=== PATIENT | female | born 1940 | race Caucasian/White ===

== ENCOUNTER 2020-03-16 18:51 | Emergency (ER) | payer MEDICARE, OTHER ==
[2020-03-16] MEDS ORDERED: KETOROLAC TROMETHAMINE INJ 30 MG/ML VIAL IM ONE (19:18)
--- NOTE | 2020-03-16 20:37 | CT ---
EXAM: Abdoment/Pelvis w/o Contrast CLINICAL INDICATION: Abdominal pain. COMPARISON: There is no previous study for comparison. TECHNIQUE: The CT scan was done using contiguous axial 2.5 mm noncontrast sections through the abdomen and pelvis. This exam was performed according to our departmental dose-optimization program, which includes automated exposure control, adjustment of the mA and/or kV according to patient size and/or use of iterative reconstruction technique. FINDINGS: The visualized portions of the lung bases contain mild areas of subsegmental atelectasis but are otherwise clear. Surgical changes are noted involving the stomach. The spleen is surgically absent. The liver is unremarkable. The gallbladder is not clearly identified. The adrenal glands appear mildly prominent but otherwise unremarkable. The pancreas is somewhat atrophic but otherwise unremarkable. There is a nonobstructing stone in the lower pole of the left kidney measuring 6.0 x 3.7 mm. The kidneys are otherwise unremarkable. There is no ureteral stone or hydronephrosis on either side. The aorta contains atherosclerotic calcifications without evidence of aneurysm. There are no dilated loops of small bowel, free air, free fluid, or abscess. The uterus is surgically absent. IMPRESSION: 1. No evidence of an acute intra-abdominal process. 2. Nonobstructing stone in the left kidney. Electronically signed by: Jason Du MD 03/16/2020 8:35 PM CDT
[2020-03-16] MEDS ORDERED: SODIUM CHLORIDE 0.9% 1000ML 1,000 ML ONE (20:41)
[2020-03-16] MEDS ORDERED: CIPROFLOXACIN 500 MG TAB PO ONE (22:59)
[2020-03-16 23:12] VITALS: TEMP 97.9
--- NOTE | 2020-03-16 23:24 | ED.PDOC ---
History of Present Illness - General Chief Complaint: Problem Stated Complaint: right flank pain 2 hours ago Time Seen by Provider: 03/16/20 19:18 Source: patient Exam Limitations: no limitations - History of Present Illness Initial Comments: The patient is a 79-year-old female presented emergency room secondary to abdominal and right flank pain that started abruptly about an hour prior to arrival. The patient does have some dementia and sometimes communication is difficult for her. She does appear a little bit confused but I have not seen her before. She reports cramping in the right side of her abdomen as well as some spasm in her right back. No urinary symptoms. Mild nausea. Daughter reports some diaphoresis that is not apparent now. Timing/Duration: 1-3 hours Severity: moderate Improving Factors: nothing Worsening Factors: nothing Associated Symptoms: diaphoresis, malaise Allergies/Adverse Reactions: Allergies Penicillins Allergy (Intermediate, Verified 01/06/14 16:45) Codeine Allergy (Mild, Verified 01/06/14 16:45) Sulfa Antibiotics Allergy (Mild, Verified 01/06/14 16:45) Home Medications: Ambulatory Orders ALPRAZolam [Xanax] 0.25 mg PO BID 01/06/14 Acetaminophen [Tylenol] 500 mg PO PRN 01/06/14 Atenolol [Tenormin] 25 mg PO BID 01/06/14 Citalopram Hydrobromide 40 mg PO BEDTIME 01/06/14 rOPINIRole HCL [Requip] 0.5 mg PO BEDTIME 01/06/14 Rivastigmine 9.5MG/24Hr Patch [Exelon PATCH] 4.6 mg TD DAILY 01/07/14 ARIPiprazole [Abilify] 2 mg PO BEDTIME 03/16/20 Ciprofloxacin [Cipro] 250 mg PO Q12H #10 tablet 03/16/20 Cyanocobalamin [Vitamin B-12] 1,000 mcg PO QAM 03/16/20 Glipizide [Glipizide ER] 2.5 mg PO QAM 03/16/20 Lisinopril 2.5 mg PO QAM 03/16/20 Memantine [Namenda] 5 mg PO BID 03/16/20 Oxybutynin Chloride 5 mg PO BEDTIME 03/16/20 Pantoprazole Sodium 40 mg PO QAM 03/16/20 QUEtiapine FUMARATE [SEROquel] 25 mg PO BID 03/16/20 Trazodone HCl [Trazodone Hydrochloride] 50 mg PO BEDTIME 03/16/20 Venlafaxine HCl [Venlafaxine HCl ER] 37.5 mg PO QAM 03/16/20 Review of Systems - Review of Systems Constitutional: States: malaise, weakness EENTM: States: no symptoms reported Respiratory: States: no symptoms reported Cardiology: States: no symptoms reported Gastrointestinal/Abdominal: States: abdominal pain, nausea Genitourinary: States: no symptoms reported Musculoskeletal: States: back pain Skin: States: no symptoms reported Neurological: States: see HPI - Mild confusion Endocrine: States: no symptoms reported All other Systems: No Change from Baseline Past Medical History (General) - Patient Medical History Hx Seizures: No Hx Stroke: No Hx Dementia: Yes Hx Asthma: No Hx of COPD: No Hx Cardiac Disorders: No Hx Congestive Heart Failure: No Hx Pacemaker: No Hx Hypertension: Yes Hx Thyroid Disease: No Hx Diabetes: Yes Hx Gastroesophageal Reflux: Yes Hx Renal Disease: No Hx Cancer: No Hx of HIV: No Hx Hepatitis C: No Hx MRSA: No Surgical History: cholecystectomy - Vaccination History Hx Influenza Vaccination: - unknown Hx Pneumococcal Vaccination: - unknown - Social History Hx Tobacco Use: Yes Hx Alcohol Use: No Hx Substance Use: No Hx Physical Abuse: No Hx Emotional Abuse: No Family Medical History - Family History Mother Family History: Unknown Living Status: Age at (years of age): 41 Cause of : beaten to Hx Family Asthma: No Hx Family Congestive Heart Failure: Yes Hx Family Hypertension: No Hx Family Stroke: No Hx Cardiac Disease: Yes Hx Family Diabetes: No Hx Family Cancer: Yes Physical Exam - Physical Exam General Appearance: Alert, Anxious Eye Exam: bilateral normal Ears, Nose, Throat: hearing grossly normal, normal pharynx Neck: full range of motion, supple Respiratory: lungs clear, normal breath sounds, no respiratory distress, no accessory muscle use Cardiovascular/Chest: normal peripheral pulses, no edema, other - Regular rate Peripheral Pulses: radial,right: 2+, radial,left: 2+ Gastrointestinal/Abdominal: soft, other - Vague right-sided abdominal discomfort to palpation Rectal Exam: deferred Back Exam: no vertebral tenderness, muscle spasm Extremity: normal range of motion, non-tender, normal inspection, no pedal edema, normal capillary refill 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 This improves markedly with correction of the glucose. Skin Exam: pallor Comments: Vital Signs - 8 hr 03/16/20 03/16/20 03/16/20 19:00 20:00 21:00 Temperature 97.8 F Pulse Rate [ 82 65 62 monitor] Respiratory 16 16 16 Rate Blood Pressure 195/90 141/83 161/76 [Left Arm] O2 Sat by Pulse 97 98 99 Oximetry 03/16/20 03/16/20 22:00 23:00 Temperature 97.9 F Pulse Rate [ 64 59 L monitor] Respiratory 16 16 Rate Blood Pressure 163/84 167/86 [Left Arm] O2 Sat by Pulse 97 97 Oximetry Progress - Progress Progress: 03/16/20 23:25 The patient is a 79-year-old female presented emergency room secondary to right abdomen and flank pain that was fairly abrupt onset this evening. The 2 potential sources for this appear to be hypoglycemia and urinary tract infection. Hypoglycemia resolved with oral intake. Symptoms resolved soon after. This is the most likely cause. The patient does have a urinary tract infection. Urine will be cultured. She is going to be placed on 5 days of oral ciprofloxacin. She does need to increase her fluid intake. She does need to eat regularly to prevent further hypoglycemic episodes. The patient is doing much better at this time. Keep follow-up with primary care doctor this coming week. july gomez [phone] - Results/Orders Results/Orders: CT scan of abdomen pelvis shows no acute pathology. See report for details. Laboratory Results - last 24 hr 03/16/20 03/16/20 03/16/20 19:32 19:32 19:32 WBC 13.6 H RBC 4.37 Hgb 10.0 L Hct 31.8 L MCV 72.7 L MCH 22.9 L MCHC 31.4 L RDW 20.3 H Plt Count 357 MPV 10.3 Absolute Neuts (auto) Not Reportable Absolute Lymphs (auto) Not Reportable Absolute Monos (auto) Not Reportable Absolute Eos (auto) Not Reportable Neutrophils % Not Reportable Neutrophils % (Manual) 41.0 L Lymphocytes % Not Reportable Lymphocytes % (Manual) 55.0 Monocytes % Not Reportable Monocytes % (Manual) 4.0 Eosinophils % Not Reportable Basophils % Not Reportable Hypochromia 2+ Platelet Estimate Normal Poikilocytosis 1+ Anisocytosis 2+ Microcytosis 1+ Target Cells 2+ Schistocytes 1+ PT 9.3 INR < 1.00 PTT (SP) 21.8 Sodium 142 Potassium 4.0 Chloride 108 Carbon Dioxide 25 Anion Gap 13.0 BUN 21 H Creatinine 1.14 BUN/Creatinine Ratio 18.4 POC Glucose Random Glucose 49 L Serum Osmolality 283.3 Lactic Acid Calcium 9.5 Magnesium 2.2 Total Bilirubin 0.4 AST 15 ALT 9 L Alkaline Phosphatase 90 Creatine Kinase 39 CK-MB (CK-2) 1.6 CK-MB (CK-2) % Not Reportable Troponin I < 0.02 B-Natriuretic Peptide 276.0 H* Serum Total Protein 6.5 Albumin 3.7 Globulin 2.8 Albumin/Globulin Ratio 1.3 Amylase 29 Lipase 23 Urine Color Urine Appearance Urine pH Ur Specific Howard Urine Protein Urine Glucose (UA) Urine Ketones Urine Blood Urine Nitrite Urine Bilirubin Urine Urobilinogen Ur Leukocyte Esterase Urine RBC Urine WBC Ur Epithelial Cells Urine Bacteria 03/16/20 03/16/20 03/16/20 19:32 19:32 20:05 WBC RBC Hgb Hct MCV MCH MCHC RDW Plt Count MPV Absolute Neuts (auto) Absolute Lymphs (auto) Absolute Monos (auto) Absolute Eos (auto) Neutrophils % Neutrophils % (Manual) Lymphocytes % Lymphocytes % (Manual) Monocytes % Monocytes % (Manual) Eosinophils % Basophils % Hypochromia Platelet Estimate Poikilocytosis Anisocytosis Microcytosis Target Cells Schistocytes PT INR PTT (SP) Sodium Potassium Chloride Carbon Dioxide Anion Gap BUN Creatinine BUN/Creatinine Ratio POC Glucose 45 L 157 H D Random Glucose Serum Osmolality Lactic Acid 1.1 Calcium Magnesium Total Bilirubin AST ALT Alkaline Phosphatase Creatine Kinase CK-MB (CK-2) CK-MB (CK-2) % Troponin I B-Natriuretic Peptide Serum Total Protein Albumin Globulin Albumin/Globulin Ratio Amylase Lipase Urine Color Urine Appearance Urine pH Ur Specific Howard Urine Protein Urine Glucose (UA) Urine Ketones Urine Blood Urine Nitrite Urine Bilirubin Urine Urobilinogen Ur Leukocyte Esterase Urine RBC Urine WBC Ur Epithelial Cells Urine Bacteria 03/16/20 03/16/20 22:30 23:02 WBC RBC Hgb Hct MCV MCH MCHC RDW Plt Count MPV Absolute Neuts (auto) Absolute Lymphs (auto) Absolute Monos (auto) Absolute Eos (auto) Neutrophils % Neutrophils % (Manual) Lymphocytes % Lymphocytes % (Manual) Monocytes % Monocytes % (Manual) Eosinophils % Basophils % Hypochromia Platelet Estimate Poikilocytosis Anisocytosis Microcytosis Target Cells Schistocytes PT INR PTT (SP) Sodium Potassium Chloride Carbon Dioxide Anion Gap BUN Creatinine BUN/Creatinine Ratio POC Glucose 164 H Random Glucose Serum Osmolality Lactic Acid Calcium Magnesium Total Bilirubin AST ALT Alkaline Phosphatase Creatine Kinase CK-MB (CK-2) CK-MB (CK-2) % Troponin I B-Natriuretic Peptide Serum Total Protein Albumin Globulin Albumin/Globulin Ratio Amylase Lipase Urine Color Yellow Urine Appearance Sl cloudy Urine pH 5.5 Ur Specific Howard >= 1.030 Urine Protein Negative Urine Glucose (UA) Negative Urine Ketones Trace Urine Blood Negative Urine Nitrite Negative Urine Bilirubin Negative Urine Urobilinogen 0.2 Ur Leukocyte Esterase Small H Urine RBC 0 Urine WBC 5-10 H Ur Epithelial Cells 3-5 Urine Bacteria Rare Departure - Departure Clinical Impression: Hypoglycemia Urinary tract infection Qualifiers: Urinary tract infection type: acute cystitis Hematuria presence: without hematuria Qualified Code(s): N30.00 - Acute cystitis without hematuria Disposition: Discharge to Home or Self Care Condition: Fair Departure Forms: ED Discharge - Pt. Copy, Patient Portal Self Enrollment Diet: regular diet Activity: increase activity as tolerated Prescriptions: Ciprofloxacin [Cipro] 250 mg PO Q12H #10 tablet Home Medications: Ambulatory Orders ALPRAZolam [Xanax] 0.25 mg PO BID 01/06/14 Acetaminophen [Tylenol] 500 mg PO PRN 01/06/14 Atenolol [Tenormin] 25 mg PO BID 01/06/14 Citalopram Hydrobromide 40 mg PO BEDTIME 01/06/14 rOPINIRole HCL [Requip] 0.5 mg PO BEDTIME 01/06/14 Rivastigmine 9.5MG/24Hr Patch [Exelon PATCH] 4.6 mg TD DAILY 01/07/14 ARIPiprazole [Abilify] 2 mg PO BEDTIME 03/16/20 Ciprofloxacin [Cipro] 250 mg PO Q12H #10 tablet 03/16/20 Cyanocobalamin [Vitamin B-12] 1,000 mcg PO QAM 03/16/20 Glipizide [Glipizide ER] 2.5 mg PO QAM 03/16/20 Lisinopril 2.5 mg PO QAM 03/16/20 Memantine [Namenda] 5 mg PO BID 03/16/20 Oxybutynin Chloride 5 mg PO BEDTIME 03/16/20 Pantoprazole Sodium 40 mg PO QAM 03/16/20 QUEtiapine FUMARATE [SEROquel] 25 mg PO BID 03/16/20 Trazodone HCl [Trazodone Hydrochloride] 50 mg PO BEDTIME 03/16/20 Venlafaxine HCl [Venlafaxine HCl ER] 37.5 mg PO QAM 03/16/20 Additional Instructions: The patient is a 79-year-old female presented emergency room secondary to right abdomen and flank pain that was fairly abrupt onset this evening. The 2 potential sources for this appear to be hypoglycemia and urinary tract infection. Hypoglycemia resolved with oral intake. Symptoms resolved soon after. This is the most likely cause. The patient does have a urinary tract infection. Urine will be cultured. She is going to be placed on 5 days of oral ciprofloxacin. She does need to increase her fluid intake. She does need to eat regularly to prevent further hypoglycemic episodes particularly while she is taking the glipizide. I would recommend that the patient hold the glipizide for the next 3 days while she is taking the ciprofloxacin, as the antibiotic can potentiate the effect of the glipizide. The patient is doing much better at this time. Keep follow-up with primary care doctor this coming week.
[2020-03-16 23:31] VITALS: BP 180/67; O2SAT 96
== END 2020-03-16 23:34 | disposition home or self-care (01) ==
LOC: ER 18:51
DX: N30.00 Acute cystitis without hematuria (principal); E11.649 Type 2 diabetes mellitus with hypoglycemia without coma; I10 Essential (primary) hypertension; K21.9 Gastro-esophageal reflux disease without esophagitis; F03.90 Unspecified dementia, unspecified severity, without behavioral disturbance, psychotic disturbance, mood disturbance, and anxiety; Z87.891 Personal history of nicotine dependence
CPT/HCPCS: 74176; 80053; 81001; 82150; 82550; 82553; 82948; 83605; 83690; 83735; 83880; 84484; 85025; 85610; 85730; 87086; J1885; J7030

== ENCOUNTER 2020-03-27 18:10 | Emergency (ER) | payer MEDICARE, OTHER ==
[2020-03-27] MEDS ORDERED: TETANUS-DIPHTHERIA TOXOIDS (TD) SYG IM ONE ×2 (18:31→20:38)
--- NOTE | 2020-03-27 18:35 | ED.PDOC ---
History of Present Illness - General Chief Complaint: Trauma Time Seen by Provider: 03/27/20 18:12 Source: patient, RN notes reviewed, Vital Signs reviewed, family Exam Limitations: other - DEMENTIA - History of Present Illness Initial Comments: Gina 79 yo F with hx of diabetes and dementia comes in with daughter after she was walking into the house and tripped as her flipflop got stuck. fell for anderson onto right leg and arm. complains of arm and head pain. not on blood thinners. no loc, loss of urine. unsure when last tetanus was. Occurred: just prior to arrival Allergies/Adverse Reactions: Allergies Penicillins Allergy (Intermediate, Verified 01/06/14 16:45) Codeine Allergy (Mild, Verified 01/06/14 16:45) Sulfa Antibiotics Allergy (Mild, Verified 01/06/14 16:45) Home Medications: Ambulatory Orders ALPRAZolam [Xanax] 0.25 mg PO BID 01/06/14 Acetaminophen [Tylenol] 500 mg PO PRN 01/06/14 Atenolol [Tenormin] 25 mg PO BID 01/06/14 Citalopram Hydrobromide 40 mg PO BEDTIME 01/06/14 rOPINIRole HCL [Requip] 0.5 mg PO BEDTIME 01/06/14 Rivastigmine 9.5MG/24Hr Patch [Exelon PATCH] 4.6 mg TD DAILY 01/07/14 ARIPiprazole [Abilify] 2 mg PO BEDTIME 03/16/20 Ciprofloxacin [Cipro] 250 mg PO Q12H #10 tablet 03/16/20 Cyanocobalamin [Vitamin B-12] 1,000 mcg PO QAM 03/16/20 Glipizide [Glipizide ER] 2.5 mg PO QAM 03/16/20 Lisinopril 2.5 mg PO QAM 03/16/20 Memantine [Namenda] 5 mg PO BID 03/16/20 Oxybutynin Chloride 5 mg PO BEDTIME 03/16/20 Pantoprazole Sodium 40 mg PO QAM 03/16/20 QUEtiapine FUMARATE [SEROquel] 25 mg PO BID 03/16/20 Trazodone HCl [Trazodone Hydrochloride] 50 mg PO BEDTIME 03/16/20 Venlafaxine HCl [Venlafaxine HCl ER] 37.5 mg PO QAM 03/16/20 Review of Systems - Review of Systems Constitutional: Denies: chills, fever EENTM: Denies: blurred vision, ear pain, ear discharge, throat pain, mouth pain Respiratory: Denies: cough, short of breath Cardiology: Denies: chest pain, palpitations Gastrointestinal/Abdominal: Denies: abdominal pain, nausea Genitourinary: Denies: dysuria Musculoskeletal: States: joint pain, muscle pain, neck pain. Denies: back pain Skin: States: rash. Denies: dryness Neurological: States: headache. Denies: numbness, paresthesia, tingling, tremors, weakness Endocrine: Denies: unexplained weight gain, unexplained weight loss Hematologic/Lymphatic: Denies: blood clots, easy bleeding, easy bruising Unable to Obtain Due To: dementia Past Medical History (General) - Patient Medical History Hx Seizures: No Hx Stroke: No Hx Dementia: Yes Hx Asthma: No Hx of COPD: No Hx Cardiac Disorders: No Hx Congestive Heart Failure: No Hx Pacemaker: No Hx Hypertension: Yes Hx Thyroid Disease: No Hx Diabetes: Yes Hx Gastroesophageal Reflux: Yes Hx Renal Disease: No Hx Cancer: No Hx of HIV: No Hx Hepatitis C: No Hx MRSA: No - Vaccination History Hx Influenza Vaccination: - unknown Hx Pneumococcal Vaccination: - unknown - Social History Hx Tobacco Use: Yes Hx Alcohol Use: No Hx Substance Use: No Hx Physical Abuse: No Hx Emotional Abuse: No Physical Exam - Physical Exam General Appearance: Alert, Comfortable, No apparent distress, Well Developed, Well Groomed, Well Hydrated, Well Nourished Head Injury: no evidence of injury, other - no de guzman sign or raccoon eyes Eye Exam: bilateral normal ENT Exam: hearing grossly normal, no evidence of ENT injury, no dental injury Peripheral Pulses: radial,right: 2+, radial,left: 2+ Cardiovascular/Respiratory: regular rate, rhythm, no M/R/G, normal peripheral pulses, no JVD, normal breath sounds, no respiratory distress Gastrointestinal/Abdominal: normal bowel sounds, non tender, soft, no organomegaly, no pulsatile mass Back Exam: normal inspection, no CVA tenderness, no vertebral tenderness Extremity Exam: normal range of motion, no pedal edema, pelvis stable, other - right forearm skin tear. right LE with contusion on proximal anterior saeed. 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 The history and assessments from nurses notes were reviewed and c onsidered, and the patient's home medication list was also reviewed and considered. My assessment and the results of testing completed here in the ED were discussed with the patient/family. All questions were answered, and they express understanding of my assessment and the plan. They have been instructed to return if their symptoms worsen, and have been asked to follow up with their primary care physician to recheck today's presenting complaint. return precautions given. Ayde Su DO #[id number] 03/27/20 20:06 - EKG/XRAY/CT XRAY: chest - no acute cardiopulmonary pathology Xray Comments: right tib/fib no fracture CT: head/c-spine: no acute pathology Procedures - Laceration/Wound Repair Right Upper Arm Wound's Depth, Shape: superficial Wound Explored: clean Irrigated w/ Saline (cc's): 500 Wound Repaired With: steri-strips Departure - Departure Clinical Impression: Fall Qualifiers: Encounter type: initial encounter Qualified Code(s): W19.XXXA - Unspecified fall, initial encounter Contusion Qualifiers: Encounter type: initial encounter Contusion area: lower leg Laterality: right Qualified Code(s): S80.11XA - Contusion of right lower leg, initial encounter Time of Disposition: 19:51 Disposition: Discharge to Home or Self Care Condition: Fair Departure Forms: ED Discharge - Pt. Copy, Patient Portal Self Enrollment Instructions: DI for Trauma, Preventing Falls in the Older Adult, Contusion (DC) Diet: resume usual diet Activity: increase activity as tolerated Referrals: Lynne Uribe FNP [Primary Care Provider] - 1-5 Days Home Medications: Ambulatory Orders ALPRAZolam [Xanax] 0.25 mg PO BID 01/06/14 Acetaminophen [Tylenol] 500 mg PO PRN 01/06/14 Atenolol [Tenormin] 25 mg PO BID 01/06/14 Citalopram Hydrobromide 40 mg PO BEDTIME 01/06/14 rOPINIRole HCL [Requip] 0.5 mg PO BEDTIME 01/06/14 Rivastigmine 9.5MG/24Hr Patch [Exelon PATCH] 4.6 mg TD DAILY 01/07/14 ARIPiprazole [Abilify] 2 mg PO BEDTIME 03/16/20 Ciprofloxacin [Cipro] 250 mg PO Q12H #10 tablet 03/16/20 Cyanocobalamin [Vitamin B-12] 1,000 mcg PO QAM 03/16/20 Glipizide [Glipizide ER] 2.5 mg PO QAM 03/16/20 Lisinopril 2.5 mg PO QAM 03/16/20 Memantine [Namenda] 5 mg PO BID 03/16/20 Oxybutynin Chloride 5 mg PO BEDTIME 03/16/20 Pantoprazole Sodium 40 mg PO QAM 03/16/20 QUEtiapine FUMARATE [SEROquel] 25 mg PO BID 03/16/20 Trazodone HCl [Trazodone Hydrochloride] 50 mg PO BEDTIME 03/16/20 Venlafaxine HCl [Venlafaxine HCl ER] 37.5 mg PO QAM 03/16/20
--- NOTE | 2020-03-27 19:41 | CT ---
EXAM: CT head without contrast CLINICAL INDICATION: Patient fell COMPARISON: There is no previous study for comparison. TECHNIQUE: CT scan was done using contiguous axial 5 mm sections through the brain. This exam was performed according to our departmental dose-optimization program, which includes automated exposure control, adjustment of the mA and/or kV according to patient size and/or use of iterative reconstruction technique. FINDINGS: There is no midline shift, mass effect, or extraaxial fluid collection. There is no evidence of acute intracranial hemorrhage, mass lesion, or cerebral edema. Moderate diffuse atrophy and nonspecific chronic ischemic changes are identified. Bone window images reveal no evidence of a skull fracture. IMPRESSION: No evidence of an acute intracranial process. Electronically signed by: Jason Du MD 03/27/2020 7:39 PM AUTOTRANSFUSIONIST
--- NOTE | 2020-03-27 19:41 | RAD ---
EXAM: Chest,1 View CLINICAL INDICATION: Patient fell COMPARISON: 01/29/2013 FINDINGS: A single view of the chest was obtained. Atherosclerotic calcifications are noted involving the aorta. The heart size is normal. The pulmonary vascularity is unremarkable. The lungs are clear. There is no consolidation, infiltrate, pleural effusion, or pneumothorax. IMPRESSION: No evidence of active pulmonary disease. Electronically signed by: Jason Du MD 03/27/2020 7:40 PM HYDRAULICS ENGINEER
--- NOTE | 2020-03-27 19:41 | CT ---
EXAM: Cervical Spine CLINICAL INDICATION: Trauma, pain COMPARISON: There is no previous study for comparison. TECHNIQUE: CT scan of the cervical spine was done using contiguous axial 3mm sections through the cervical spine with sagittal and coronal reconstructions. This exam was performed according to our departmental dose-optimization program, which includes automated exposure control, adjustment of the mA and/or kV according to patient size and/or use of iterative reconstruction technique. Findings: There is no fracture or subluxation. The prevertebral soft tissues are normal. The bilateral facet joint alignment is normal. The osseous structures appear intact and unremarkable. IMPRESSION: No evidence of acute traumatic injury. Electronically signed by: Jason Du MD 03/27/2020 7:40 PM [facility]
--- NOTE | 2020-03-27 19:42 | RAD ---
EXAM: Tibia/Fibula,Right CLINICAL INDICATION: Trauma, pain COMPARISON: There is no previous study for comparison. FINDINGS: 2 views of the right tibia/fibula reveal no evidence of any fracture. The osseous structures appear intact and unremarkable. There are no radiopaque foreign bodies. IMPRESSION: Negative right tibia/fibula radiographs. Electronically signed by: Jason Du MD 03/27/2020 7:40 PM [facility]
[2020-03-27 20:58] VITALS: BP 195/77; TEMP 98.5; O2SAT 98
== END 2020-03-27 20:45 | disposition home or self-care (01) ==
LOC: ER 18:10
DX: S80.11XA Contusion of right lower leg, initial encounter (principal); S41.111A Laceration without foreign body of right upper arm, initial encounter; R51.9 Headache, unspecified; M54.2 Cervicalgia; F03.90 Unspecified dementia, unspecified severity, without behavioral disturbance, psychotic disturbance, mood disturbance, and anxiety; I10 Essential (primary) hypertension; E11.9 Type 2 diabetes mellitus without complications; K21.9 Gastro-esophageal reflux disease without esophagitis; Z79.899 Other long term (current) drug therapy; Z88.0 Allergy status to penicillin; Z88.5 Allergy status to narcotic agent; Z88.2 Allergy status to sulfonamides; W01.0XXA Fall on same level from slipping, tripping and stumbling without subsequent striking against object, initial encounter; Y93.01 Activity, walking, marching and hiking; Y92.009 Unspecified place in unspecified non-institutional (private) residence as the place of occurrence of the external cause